=== PATIENT | female | born 1950 | race Caucasian/White ===

== ENCOUNTER 2021-05-28 09:47 | Outpatient (CLI) | payer MEDICARE, BC ==
--- NOTE | 2021-05-28 10:41 | DEXA Report ---
PROCEDURE: Dexa Spine and/or Hip INDICATIONS: POSTMENOPAUSAL TECHNIQUE: Dual energy x-ray absorptiometry (DXA) was performed on a [employer] System. Regions measur ed are the AP Spine, femoral neck, and if needed forearm. COMPARISON: None. FINDINGS: Lumbar Spine: Bone Mineral Density 0.825 g/cm/cm,T score -3.0, osteoporosis Left Femoral Neck: Bone Mineral Density 0.648 g/cm/cm, T score -2.9, osteoporosis (T score greater or equal to -1.0: NORMAL) (T score from -1.1 to -2.4: OSTEOPENIA) (T score less than or equal to -2.5 to: OSTEOPOROSIS) Impression: Bone mineral density as detailed above. Patients with diagnosis of osteoporosis or osteopenia should have regular bone mineral density assess ment. For those eligible for Medicare, routine testing is allowed once every 2 years. Testing frequ ency can be increased for patients who have rapidly progressing disease or for those who are receivin g medical therapy to restore bone mass. Reviewed by: Delon Toribio MD on 05/28/2021 10:40 AM PST Approved by: Delon Toribio MD on 05/28/2021 10:40 AM PST Station ID: [id number]
== END 2021-05-28 09:48 | disposition home or self-care (01) ==
LOC: DI 09:47
PROVIDERS: ATTEND Registered Nurse
DX: Z78.0 Asymptomatic menopausal state (principal); M81.0 Age-related osteoporosis without current pathological fracture

== ENCOUNTER 2022-11-25 08:00 | Outpatient (CLI) | payer MEDICARE, BC | END 2022-11-25 23:59 | disposition home or self-care (01) | LOC: LAB.S 08:00 | PROVIDERS: ATTEND Physician Assistant | DX: H60.90 Unspecified otitis externa, unspecified ear (principal) | CPT/HCPCS: 87070; 87077; 87181; 87205 ==